=== PATIENT | female | born 1990 | race Caucasian/White ===

== ENCOUNTER → 2020-09-06 12:30 | Outpatient (CLI) | payer MEDICAID, SELFPAY ==
--- NOTE | 2020-09-06 12:51 | RAD_ITS ---
STUDY: X-RAY - RIGHT KNEE REASON FOR EXAM: Female, 30 years old. RIGHT KNEE PAIN AND SWELLING X SEVERAL DAYS -- FELL IN MAY TWICE ON HER KNEE, FELT A POP 4 DAYS AGO TECHNIQUE: 4 view(s) of the knee. COMPARISON: None. FINDINGS: Normal visualized distal femur. Normal visualized proximal tibia and fibula. Normal proximal tibiofibular articulation. Normal medial femorotibial compartment. Normal lateral femorotibial compartment. Normal patellofemoral articulation. The soft tissue structures are unremarkable. RAD/Knee 4 or More Views IMPRESSION: Normal x-ray examination of the knee. Electronically Signed: Rigo Ayoub MD at 19:43 EDT , Service support ,
== END ==
PROVIDERS: PCP Family Medicine; Visit Provider Chiropractor
DX: M25.561 Pain in right knee (principal)
CPT/HCPCS: 73564

== ENCOUNTER → 2020-12-06 11:18 | Outpatient (CLI) | payer MEDICAID, SELFPAY ==
--- NOTE | 2020-12-06 11:27 | RAD_ITS ---
STUDY: X-RAY - LUMBAR SPINE REASON FOR EXAM: Female, 30 years old. CHRONIC KNEE PAIN. PT THINKS ITS COMING FROM BACK TECHNIQUE: 4 view(s) of the lumbar spine were obtained. COMPARISON: None FINDINGS: Normal lumbar lordosis. There is no substantial scoliosis. There is a normal alignment of the vertebrae. Normal vertebral bodies and endplates. Normal disc space heights. The soft tissue structures are unremarkable. RAD/L/S Spine Min 4 Views IMPRESSION: Normal x-ray examination of the lumbar spine. Electronically Signed: Cyril España MD at 12:09 EST Tel , Service support ,
== END ==
PROVIDERS: PCP Family Medicine; Referring Provider Chiropractor; Visit Provider Chiropractor
DX: S33.5XXA Sprain of ligaments of lumbar spine, initial encounter (principal)
CPT/HCPCS: 72110

== ENCOUNTER → 2021-03-09 13:00 | Outpatient (CLI) | payer MEDICAID, SELFPAY ==
--- NOTE | 2021-03-09 14:34 | NEURO ---
NCS and/or EMG Patient Report Ordering Doctor: Elvira Gold NP DATE OF SERVICE: 03/09/21 Indication: Intermittent bilateral hand pain, numbness and poor dexterity. Symptoms are worse on the right side. Nocturnal wrist splints have reduced, but not corrected the issue. Evaluate for median neuropathy at the wrist. Findings: Nerve conduction studies were performed in the right and left upper extremities. The right median motor study recording the abductor pollicis brevis showed a normal amplitude, normal distal latency and normal conduction velocity. The right ulnar motor study recording the abductor digiti minimi showed a normal amplitude, normal distal latency and normal conduction velocity. No conduction block or focal slowing was present across the elbow. Right median-ulnar lumbrical / interosseous motor latencies showed a normal median latency compared to the ulnar. The right median sensory response recording digit two showed a normal amplitude, latency and conduction velocity. The right ulnar sensory response recording digit five showed a normal amplitude, latency and conduction velocity. The right radial sensory response recording over the extensor snuff box showed a normal amplitude, latency and conduction velocity. The left median motor study recording the abductor pollicis brevis showed a normal amplitude, normal distal latency and normal conduction velocity. The left ulnar motor study recording the abductor digiti minimi showed a normal amplitude, normal distal latency and normal conduction velocity. No conduction block or focal slowing was present across the elbow. Left median-ulnar lumbrical / interosseous motor latencies showed a normal median latency compared to the ulnar. The left median sensory response recording digit two showed a normal amplitude, latency and conduction velocity. The left ulnar sensory response recording digit five showed a normal amplitude, latency and conduction velocity. The left radial sensory response recording over the extensor snuff box showed a normal amplitude, latency and conduction velocity. Needle EMG of the right upper extremity and cervical paraspinal muscles was performed. No denervation was seen in any muscle. All motor unit morphology, activation and recruitment patterns were normal. Needle EMG of the left upper extremity was omitted due to the normal findings on the more symptomatic side. Impression: This is a normal study. There is no electrophysiologic evidence of median neuropathy across the wrist on either side. In addition, there is no electrophysiologic evidence of cervical radiculopathy, brachial plexopathy or other entrapment neuropathy in the right upper extremity. Please note: electrodiagnostic testing is appropriately 95% sensitive in detecting median neuropathy across the wrist when internal comparison studies are done, as was performed in this case. However, 5% of patients will have a false negative study. Presumably, in these patients, intermittent compression results in pain and paresthesias from ischemia, but without any fixed demyelination or axonal loss that can be demonstrated on electrodiagnostic studies. Thus, clinical correlation is required in the interpretation of this negative study. Humphrey Faith D.O.
== END ==
PROVIDERS: PCP Nurse Practitioner Primary Care; Referring Provider Nurse Practitioner Primary Care; Visit Provider Nurse Practitioner Primary Care
DX: M25.531 Pain in right wrist (principal); M25.532 Pain in left wrist; R20.0 Anesthesia of skin; R20.2 Paresthesia of skin
CPT/HCPCS: 95886; 95913

== ENCOUNTER 2022-01-14 09:09 | Outpatient (CLI) | payer MEDICAID, SELFPAY ==
[2022-01-18 18:00] LABS: HPV APTIMA, High Risk Negative (Negative)
== END 2022-01-14 23:59 | disposition home or self-care (01) ==
LOC: LABSPEC 01-15 09:10
PROVIDERS: PCP Nurse Practitioner Primary Care; Visit Provider Obstetrics & Gynecology
DX: Z12.4 Encounter for screening for malignant neoplasm of cervix (principal)
CPT/HCPCS: 87624; 88175; G0145

== ENCOUNTER 2022-02-11 09:20 | Outpatient (CLI) | payer MEDICAID, SELFPAY ==
[2022-02-11 12:37] LABS: Vitamin B12 622 pg/mL (211-911); Vitamin D,25 Hydroxy 27.4 ng/mL
[2022-02-11 12:41] LABS: Ferritin 43 ng/mL (8-252); T4 Free Direct 1.64 ng/dL (0.76-1.46); Thyroid Stim Hormone (TSH) 0.36 uIU/mL (0.358-3.74)
== END 2022-02-11 23:59 | disposition home or self-care (01) ==
LOC: BIMLAB 09:21
PROVIDERS: PCP Nurse Practitioner Primary Care; Referring Provider Internal Medicine Endocrinology, Diabetes & Metabolism; Visit Provider Internal Medicine Endocrinology, Diabetes & Metabolism
DX: R20.2 Paresthesia of skin (principal); E61.1 Iron deficiency; E03.8 Other specified hypothyroidism; E06.3 Autoimmune thyroiditis; E55.9 Vitamin D deficiency, unspecified
CPT/HCPCS: 36415; 82306; 82607; 82728; 84439; 84443

== ENCOUNTER → 2022-04-20 | Outpatient (CLI) | payer MEDICAID, SELFPAY ==
[2022-04-20 16:33] LABS: Absolute Lymphocyte Count 2.53 X10^3/uL (0.83-4.51); Absolute Neutrophil Count 5.6 X10^3/uL (2.0-7.7); Basophil# 0.04 X10^3/uL; Basophil% 0.5 % (0-1); Eosinophil# 0.05 X10^3/uL; Eosinophils% 0.6 % (0-5); Hematocrit 41.1 % (37-47); Hemoglobin 14.6 g/dL (12.0-15.0); Lymphocyte # 2.53 X10^3/ul (0.83-4.51); Lymphocyte % 29.1 % (19-41); Mean Corp Hgb Conc 35.5 g/dL (32-36); Mean Corpuscular Hgb 31.6 pg (27.0-32.0); Mean Platelet Vol. 9.6 fl (6.2-12.0); Monocyte# 0.51 X10^3/uL; Monocyte% 5.9 % (0-10); NRBC Flagged by Analyzer 0 % (0-5); Neutrophil # 5.56 X10^3/uL (2.7-7.7); Neutrophil % 63.8 % (47-70); Platelet Count 333 K/mm3 (150-450); RBC Distribution Width CV 12.1 % (11.6-14.6); RBC Distribution Width SD 38.8 fl (35.1-43.9); Red Blood Count 4.62 M/mm3 (4.2-5.4); White Blood Count 8.7 K/mm3 (4.4-11.0)
[2022-04-20 20:49] LABS: ALB/GLOB Ratio 1.2 RATIO (0.9-2.4); AST(SGOT) 18 U/L (15-37); Alanine Aminotransfer ALT/SGPT 37 U/L (13-56); Albumin, Serum 4.1 g/dL (3.2-5.0); Alkaline Phosphatase 77 U/L (45-117); Anion Gap 10 (5-15); BUN 14 mg/dL (7-18); BUN/Creat Ratio 18.4 RATIO (10-20); Calcium,Total 9.6 mg/dL (8.5-10.1); Chloride 105 mmol/L (98-107); Cholesterol 218 mg/dL (200); Creatinine, Serum 0.76 mg/dL (0.55-1.02); EST Glomerular Filtration Rate 94 mL/min (>60); Est Glom Filt Rate - Afr Amer 114 mL/min (>60); Globulin 3.3 g/dL (2.2-4.2); Glucose 92 mg/dL (74-106); High Density Lipoprotein 53 mg/dL; Potassium 4.2 mmol/L (3.5-5.1); Protein, Total 7.4 g/dL (6.4-8.2); Sodium Level 139 mmol/L (136-145); Triglycerides 171 mg/dL; Very Low Density Lipoprotein 34 mg/dL (5-40)
== END | disposition home or self-care (01) ==
LOC: BIMLAB 16:04
PROVIDERS: PCP Internal Medicine; Referring Provider Internal Medicine; Visit Provider Internal Medicine
DX: E03.8 Other specified hypothyroidism (principal); E06.3 Autoimmune thyroiditis
CPT/HCPCS: 36415; 80053; 80061; 85025

== ENCOUNTER → 2022-06-29 | Outpatient (CLI) | payer MEDICAID, SELFPAY ==
[2022-06-29 15:19] LABS: Absolute Lymphocyte Count 2.03 X10^3/uL (0.83-4.51); Absolute Neutrophil Count 3.9 X10^3/uL (2.0-7.7); Basophil# 0.04 X10^3/uL; Basophil% 0.6 % (0-1); Eosinophil# 0.03 X10^3/uL; Eosinophils% 0.5 % (0-5); Hematocrit 40.8 % (37-47); Hemoglobin 14.2 g/dL (12.0-15.0); Lymphocyte # 2.03 X10^3/ul (0.83-4.51); Lymphocyte % 32.2 % (19-41); Mean Corp Hgb Conc 34.8 g/dL (32-36); Mean Corpuscular Hgb 31.3 pg (27.0-32.0); Mean Corpuscular Volume 89.9 fL (81-99); Mean Platelet Vol. 9.6 fl (6.2-12.0); Monocyte# 0.26 X10^3/uL; Monocyte% 4.1 % (0-10); NRBC Flagged by Analyzer 0 % (0-5); Neutrophil # 3.93 X10^3/uL (2.7-7.7); Neutrophil % 62.4 % (47-70); Platelet Count 365 K/mm3 (150-450); RBC Distribution Width CV 12.2 % (11.6-14.6); RBC Distribution Width SD 39.8 fl (35.1-43.9); Red Blood Count 4.54 M/mm3 (4.2-5.4); White Blood Count 6.3 K/mm3 (4.4-11.0)
[2022-06-29 16:01] LABS: ALB/GLOB Ratio 1.1 RATIO (0.9-2.4); AST(SGOT) 13 U/L (15-37); Alanine Aminotransfer ALT/SGPT 29 U/L (13-56); Albumin, Serum 3.9 g/dL (3.2-5.0); Alkaline Phosphatase 79 U/L (45-117); Anion Gap 3 (5-15); BUN 14 mg/dL (7-18); Chloride 109 mmol/L (98-107); Creatinine, Serum 0.93 mg/dL (0.55-1.02); EST Glomerular Filtration Rate 74 mL/min (>60); Est Glom Filt Rate - Afr Amer 90 mL/min (>60); Globulin 3.5 g/dL (2.2-4.2); Glucose 94 mg/dL (74-106); Potassium 3.8 mmol/L (3.5-5.1); Protein, Total 7.4 g/dL (6.4-8.2); Sodium Level 139 mmol/L (136-145)
== END | disposition home or self-care (01) ==
LOC: BIMLAB 14:31
PROVIDERS: PCP Internal Medicine; Visit Provider Internal Medicine
DX: R00.2 Palpitations (principal)
CPT/HCPCS: 36415; 80053; 84443; 85025

== ENCOUNTER → 2022-07-09 | Outpatient (CLI) | payer MEDICAID, SELFPAY | END | disposition home or self-care (01) | LOC: PSN 08:41 | PROVIDERS: PCP Internal Medicine; Referring Provider Internal Medicine; Visit Provider Internal Medicine | DX: R00.2 Palpitations (principal) | CPT/HCPCS: 93225; 93226 ==

== ENCOUNTER → 2022-12-09 | Outpatient (CLI) | payer MEDICAID, SELFPAY ==
[2022-12-09 12:34] LABS: Thyroid Stim Hormone (TSH) 1.63 uIU/mL (0.358-3.74)
== END | disposition home or self-care (01) ==
LOC: BIMLAB 09:40
PROVIDERS: PCP Internal Medicine; Referring Provider Internal Medicine Endocrinology, Diabetes & Metabolism; Visit Provider Internal Medicine Endocrinology, Diabetes & Metabolism
DX: E03.8 Other specified hypothyroidism (principal); E06.3 Autoimmune thyroiditis
CPT/HCPCS: 36415; 84439; 84443

== ENCOUNTER → 2022-12-17 | Outpatient (CLI) | payer MEDICAID, SELFPAY ==
[2022-12-17 12:30] LABS: Absolute Lymphocyte Count 1.84 X10^3/uL (0.83-4.51); Absolute Neutrophil Count 3.2 X10^3/uL (2.0-7.7); Basophil# 0.04 X10^3/uL; Basophil% 0.7 % (0-1); Eosinophil# 0.06 X10^3/uL; Eosinophils% 1.1 % (0-5); Hemoglobin 13.7 g/dL (12.0-15.0); Lymphocyte # 1.84 X10^3/ul (0.83-4.51); Lymphocyte % 33.6 % (19-41); Mean Corp Hgb Conc 33.4 g/dL (32-36); Mean Corpuscular Hgb 30.9 pg (27.0-32.0); Mean Corpuscular Volume 92.6 fL (81-99); Mean Platelet Vol. 10.2 fl (6.2-12.0); Monocyte# 0.32 X10^3/uL; Monocyte% 5.8 % (0-10); NRBC Flagged by Analyzer 0.4 % (0-5); Neutrophil % 58.4 % (47-70); Platelet Count 351 K/mm3 (150-450); RBC Distribution Width CV 12.2 % (11.6-14.6); RBC Distribution Width SD 41.7 fl (35.1-43.9); Red Blood Count 4.43 M/mm3 (4.2-5.4); White Blood Count 5.5 K/mm3 (4.4-11.0)
[2022-12-17 12:43] LABS: Vitamin B12 693 pg/mL (211-911); Vitamin D,25 Hydroxy 22.4 ng/mL
[2022-12-17 12:46] LABS: Cholesterol 221 mg/dL (200); Ferritin 30 ng/mL (8-252); High Density Lipoprotein 74 mg/dL; Triglycerides 61 mg/dL; Very Low Density Lipoprotein 12 mg/dL (5-40)
== END | disposition home or self-care (01) ==
LOC: BIMLAB 08:52
PROVIDERS: PCP Internal Medicine; Referring Provider Internal Medicine Endocrinology, Diabetes & Metabolism; Visit Provider Internal Medicine Endocrinology, Diabetes & Metabolism
DX: E03.8 Other specified hypothyroidism (principal); E06.3 Autoimmune thyroiditis; Z78.9 Other specified health status; R53.81 Other malaise; R53.83 Other fatigue; E55.9 Vitamin D deficiency, unspecified
CPT/HCPCS: 36415; 80061; 82306; 82607; 82728; 85025

== ENCOUNTER → 2022-12-30 | Outpatient (CLI) | payer MEDICAID, SELFPAY ==
--- NOTE | 2022-12-30 08:53 | ECHOD_ITS ---
Reason For Study: ARRYTHMIA Procedure This was a 2D Doppler, Color Flow transthoracic echocardiogram. Exam performed in department. Left Ventricle Normal LV size. Left ventricular systolic function is normal. The estimated ejection fraction is 60 %. No regional wall motion abnormalities noted. Right Ventricle Normal RV size. Normal systolic function. Atria Normal left atrium. Normal right atrium. Mitral Valve Normal mitral valve. Tricuspid Valve Normal tricuspid valve. Aortic Valve Normal aortic valve. Trisinus/trileaflet aortic valve. Pulmonic Valve Normal pulmonic valve. Great Vessels Normal aortic root. The pulmonary artery is normal size. Normal inferior vena cava. Pericardium/Pleural No pericardial effusion. MMode/2D Measurements & Calculations LVIDd: 4.5 cm IVSd: 0.98 cm Ao root diam: 2.7 cm LVIDs: 2.8 cm LVPWd: 0.96 cm FS: 36.0 % LAV(MOD-sp4): 35.0 ml LVAd ap4: 23.2 cm2 LVAd ap2: 22.7 cm2 LVLd ap4: 7.3 cm LVLd ap2: 7.1 cm EDV(MOD-sp4): 59.9 ml EDV(MOD-sp2): 57.9 ml EDV(sp4-el): 63.0 ml EDV(sp2-el): 61.2 ml LVAs ap4: 12.2 cm2 LVAs ap2: 12.9 cm2 LVLs ap4: 5.8 cm LVLs ap2: 6.0 cm ESV(MOD-sp4): 21.0 ml ESV(MOD-sp2): 22.9 ml ESV(sp4-el): 21.7 ml ESV(sp2-el): 23.7 ml EF(MOD-sp4): 64.9 % EF(MOD-sp2): 60.4 % EF(sp4-el): 65.6 % SV(MOD-sp4): 38.9 ml SV(MOD-sp2): 35.0 ml SV(sp4-el): 41.3 ml LA dimension(2D): 3.3 cm LA A4 area: 14.3 cm2 RA A4 area: 8.5 cm2 Time Measurements MV dec time: 0.11 sec Doppler Measurements & Calculations MV E max bao: 95.6 cm/sec Lat Peak E' Bao: 17.1 cm/sec Med Peak E' Bao: 12.5 cm/sec MV A max bao: 86.6 cm/sec E/E' lat: 5.6 E/E' med: 7.6 MV E/A: 1.1 MV V2 max: 98.0 cm/sec MV dec slope: 860.0 cm/sec2 Ao V2 max: 133.3 cm/sec MV max P.8 mmHg Ao max P.1 mmHg MV V2 mean: 70.1 cm/sec Ao V2 mean: 92.6 cm/sec MV mean P.2 mmHg Ao mean P.9 mmHg MV V2 VTI: 23.6 cm Ao V2 VTI: 26.4 cm AV (velocity ratio): 0.79 LV V1 max: 103.8 cm/sec PA V2 max: 109.8 cm/sec LV V1 max P.3 mmHg PA V2 mean: 75.0 cm/sec LV V1 mean P.5 mmHg LV V1 mean: 74.4 cm/sec LV V1 VTI: 20.9 cm ECHO/Echo Complete Interpretation Summary Normal LV size. Left ventricular systolic function is normal. The estimated ejection fraction is 60 %. Structurally normal valves. Ordering Physician: J Luis Solomon Referring Physician: J Lius Solomon Performed By: Estrella Borden RCS
== END | disposition home or self-care (01) ==
LOC: CVS 08:50
PROVIDERS: PCP Internal Medicine; Referring Provider Internal Medicine Cardiovascular Disease; Visit Provider Internal Medicine Cardiovascular Disease
DX: R00.0 Tachycardia, unspecified (principal)
CPT/HCPCS: 93306

== ENCOUNTER → 2023-04-05 | Outpatient (CLI) | payer MEDICAID, SELFPAY ==
[2023-04-05 15:15] LABS: Internal QC Validated? YES +Cl - CLEAR BKGD
[2023-04-05 15:17] LABS: Pregnancy, Urine Positive Negative
== END | disposition home or self-care (01) ==
LOC: LABSPEC 14:09
PROVIDERS: PCP Internal Medicine; Visit Provider Nurse Practitioner Family
DX: Z32.01 Encounter for pregnancy test, result positive (principal); N92.6 Irregular menstruation, unspecified
CPT/HCPCS: 81025

== ENCOUNTER → 2024-01-20 | Outpatient (CLI) | payer MEDICAID, SELFPAY ==
[2024-01-20 13:07] LABS: T4 Free Direct 1.17 ng/dL (0.76-1.46); Thyroid Stim Hormone (TSH) 0.32 uIU/mL (0.358-3.74)
== END | disposition home or self-care (01) ==
LOC: LAB 11:29
PROVIDERS: PCP Internal Medicine; Referring Provider Internal Medicine Endocrinology, Diabetes & Metabolism; Visit Provider Internal Medicine Endocrinology, Diabetes & Metabolism
DX: E03.8 Other specified hypothyroidism (principal); E06.3 Autoimmune thyroiditis
CPT/HCPCS: 36415; 84439; 84443

== ENCOUNTER → 2024-02-23 | Outpatient (CLI) | payer MEDICAID, SELFPAY ==
--- NOTE | 2024-02-23 16:55 | US_ITS ---
STUDY: THYROID ULTRASOUND REASON FOR EXAM: Female, 33 years old. Tender, enlarged right lobe TECHNIQUE: Ultrasound evaluation of the thyroid was performed with real-time and static tellez-scale imaging. COMPARISON: None. FINDINGS: RIGHT LOBE: The right lobe of the thyroid gland measures 4.3 cm x 1.6 x 2.1 cm. There is a heterogeneous echotexture. There are no demonstrated solid, cystic or complex lesions. LEFT LOBE: The left lobe of the thyroid gland measures 4.5 cm x 1.6 cm x 2.0 cm. There is a heterogeneous echotexture. There are no demonstrated solid, cystic or complex lesions. ISTHMUS: The isthmus measures 3 mm. The regional lymph nodes are normal. US/Thyroid IMPRESSION: Heterogeneous echotexture of both lobes of the thyroid without focal nodule. Electronically Signed: Bello Quintero MD at 11:02 EDT ,
== END | disposition home or self-care (01) ==
LOC: US 16:55
PROVIDERS: PCP Internal Medicine; Referring Provider Internal Medicine Endocrinology, Diabetes & Metabolism; Visit Provider Internal Medicine Endocrinology, Diabetes & Metabolism
DX: E04.9 Nontoxic goiter, unspecified (principal); E03.8 Other specified hypothyroidism; E06.3 Autoimmune thyroiditis
CPT/HCPCS: 76536

== ENCOUNTER → 2024-03-16 | Outpatient (CLI) | payer MEDICAID, SELFPAY ==
[2024-03-16 15:26] LABS: Absolute Lymphocyte Count 2.02 X10^3/uL (0.83-4.51); Absolute Neutrophil Count 4.3 X10^3/uL (2.0-7.7); Basophil# 0.08 X10^3/uL; Basophil% 1.1 % (0-1); Eosinophil# 0.18 X10^3/uL; Eosinophils% 2.6 % (0-5); Hematocrit 38.3 % (37-47); Hemoglobin 12.7 g/dL (12.0-15.0); Lymphocyte # 2.02 X10^3/ul (0.83-4.51); Lymphocyte % 28.7 % (19-41); Mean Corp Hgb Conc 33.2 g/dL (32-36); Mean Corpuscular Hgb 30.2 pg (27.0-32.0); Mean Platelet Vol. 9.6 fl (6.2-12.0); Monocyte% 5.7 % (0-10); NRBC Flagged by Analyzer 0 % (0-5); Platelet Count 436 K/mm3 (150-450); RBC Distribution Width SD 44.9 fl (35.1-43.9); Red Blood Count 4.21 M/mm3 (4.2-5.4)
[2024-03-16 15:57] LABS: ALB/GLOB Ratio 0.9 RATIO (0.9-2.4); AST(SGOT) 33 U/L (15-37); Alanine Aminotransfer ALT/SGPT 56 U/L (13-56); Albumin, Serum 3.6 g/dL (3.2-5.0); Alkaline Phosphatase 107 U/L (45-117); Anion Gap 6 (5-15); BUN 12 mg/dL (7-18); BUN/Creat Ratio 15.7 RATIO (10-20); Calcium,Total 9.3 mg/dL (8.5-10.1); Chloride 105 mmol/L (98-107); Creatinine, Serum 0.76 mg/dL (0.55-1.02); EST Glomerular Filtration Rate 92 mL/min (>60); Est Glom Filt Rate - Afr Amer 111 mL/min (>60); Globulin 3.8 g/dL (2.2-4.2); Glucose 105 mg/dL (74-106); Potassium 4.5 mmol/L (3.5-5.1); Protein, Total 7.4 g/dL (6.4-8.2); Sodium Level 140 mmol/L (136-145)
== END | disposition home or self-care (01) ==
LOC: BIMLAB 13:28
PROVIDERS: PCP Internal Medicine; Referring Provider Internal Medicine; Visit Provider Internal Medicine
DX: N92.0 Excessive and frequent menstruation with regular cycle (principal)
CPT/HCPCS: 36415; 80053; 85025

== ENCOUNTER 2024-04-07 15:56 | Emergency (ER) | payer MEDICAID, SELFPAY ==
[2024-04-07 15:57] VITALS: BP 140/96; PULSE 99; RESP 16; TEMP 35.6; BMI 39.6
[2024-04-07 16:00] VITALS: BP 140/90; PULSE 99; RESP 16; TEMP 35.6
--- NOTE | 2024-04-07 16:08 | ED.VIS.FEGU ---
HPI HPI - Female History of Present Illness Chief Complaint: Vag Bleeding Detail of Chief Complaint: Vaginal bleeding that started April 02 Informant: patient Pain Pain: Positive for Pelvic Pain Onset: Days Context: Sudden Onset Timing: Intermittent and Waxes and wanes Quality: Positive for Cramping Current Severity: Gone Maximum Severity: Moderate Worsened by: Movement and [place] Relieved by: Remaining Still, NSAIDS and Tylenol Bleeding Issue: Positive for Vaginal bleeding and Passing clots; Negative for Passing tissue Onset: - (Bleeding started April 02. Bleeding became significant April 05.) Context: Sudden Onset Timing: Continuous and Waxes and wanes Current Severity: Heavy Current pads/hr: 1 Maximum Severity: Heavy Associated Symptoms Associated Symptoms: Negative for Dysuria, Frequency, Urgency, Hematuria or Missed Period Last known menstrual period: Prior to Sexually: Positive for Active Control: - (Bilateral salpingo-oophorectomy) P: 3 Narrative Narrative: Patient is a 33-year-old woman. Patient had bilateral salpingo ectomy November of this year. This occurred 1 day after delivery. She presents because of vaginal bleeding that started April 02. She states initially there was spotting. Tuesday it increased slightly. she reports significant/heavy bleeding. She reports using a super plus tampon plus a pad every 1.5 hours. She does feel fatigued and tired. She denies orthostatic symptoms. She denies problems with bleeding. She states she had a similar presentation last month and was placed on medicine by her [facility] Dr. Hdz. Patient denies cardiac or respiratory symptoms. Patient denies abdominal pain or back pain. She does endorse intermittent cramping pelvic pain. 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 IBS (irritable bowel syndrome) Joint instability Malaise and fatigue Missed period Obesity Palpitations Positive urine test Post thyroiditis Right shoulder pain Sinusitis Syncope Tachycardia Tonsillectomy planned Home Medications pyridoxine (vitamin B6) 100 mg tablet 100 mg PO DAILY 12/17/21 [History Last Taken Unknown] cetirizine 10 mg capsule (Zyrtec) 10 mg PO DAILY PRN 04/20/22 [History Last Taken Unknown] lactobacillus combination no.9 4 billion cell capsule (Adult 50 Plus Probiotic) PO 04/20/22 [History Last Taken Unknown] cholecalciferol (vitamin D3) 25 mcg (1,000 unit) capsule 2,000 unit PO DAILY 12/22/22 [History Last Taken Unknown] ferrous sulfate 325 mg (65 mg iron) tablet 325 mg PO DAILY 12/22/22 [History Last Taken Unknown] fluticasone propionate 50 mcg/actuation nasal spray,suspension See Rx Instructions .Route .COMPLEX #16 mL 04/27/23 [Rx Last Taken Unknown] ascorbic acid (vitamin C) 500 mg capsule mg PO DAILY 09/21/23 [History Last Taken Unknown] magnesium 250 mg tablet 500 mg PO DAILY 09/21/23 [History Last Taken Unknown] zinc gluconate 30 mg tablet 30 mg PO DAILY 09/30/23 [History Last Taken Unknown] labetalol 100 mg tablet 100 mg PO BID PRN Tacchycardia #120 tabs 10/13/23 [Rx Last Taken Unknown] levothyroxine 100 mcg tablet 100 mcg PO DAILY #90 tabs 02/17/24 [Rx Last Taken Unknown] multivitamin 1 tab PO DAILY 03/16/24 [History Last Taken Unknown] tranexamic acid 650 mg tablet 1,300 mg (2 x 650 mg) PO TID 5 days #30 tabs 04/07/24 [Rx Last Taken Unknown] Allergy/AdvReac Type Severity Reaction Status Date / Time oxycodone Allergy Severe swelling Verified 04/07/24 15:57 Sulfa (Sulfonamide Allergy Severe swelling Verified 04/07/24 15:57 Antibiotics) meloxicam AdvReac Intermediate G.I. upset Verified 04/07/24 15:57 Family History Mother Cervical cancer Diabetes Hypertension Grandmother Rheumatoid arthritis Lung cancer Hypertension Ovarian cancer Seizures Grandfather Lung cancer Diabetes Myocardial infarction Heart disease Hypertension Seizures CVA (cerebral vascular accident) Uncle Lung cancer Seizures Father Myocardial infarction Hypertension Sister Thyroid disorder Other High cholesterol Thyroid cancer Surgical History H/O tubal ligation [place] teeth extracted Surgical History no surgical history no surgical history (Patient reports bilateral salpingectomy not ligation.) Social History Smoking Status: Never smoker alcohol intake: current alcohol intake frequency: holidays/special occasions only substance use type: does not use caffeine: Yes Type: coffee Number of servings: 1 what type of physical activity do you participate in: none seatbelt use: always do you feel safe at home: Yes additional social history: - Edward ROS ROS ED Constitutional Constitutional ED: Denies chills, fever(s) or subjective Eyes Eyes: Denies blurry vision or change in vision ENT ENT ED: Denies ear pain or rhinorrhea Cardiovascular Cardiovascular: Denies chest pain or palpitations Respiratory/Chest Respiratory/Chest: Denies dyspnea or dyspnea on exertion Gastrointestinal Gastrointestinal: Denies abdominal pain, nausea or vomiting Genitourinary Genitourinary ED: Denies dysuria or hematuria Musculoskeletal Musculoskeletal: Denies arthralgias, myalgias or neck pain Integumentary Denies rash Hematologic/Lymphatic Hematologic/Lymphatic: Denies easy bleeding or easy bruising EXAM Physical Exam Const Vital Signs: 04/07/24 15:57 04/07/24 16:00 04/07/24 16:44 Temperature 96.1 F L 96.1 F L Temperature Source Temporal Temporal Pulse Rate 99 99 Pulse Rate [Lying] 82 Pulse Rate [Sitting (for 1 minute prior to obtaining)] 87 Pulse Rate [Standing (for 1 minute prior to obtaining)] 87 Respiratory Rate 16 16 Blood Pressure 140/96 H 140/90 H Blood Pressure [Lying] 136/76 H Blood Pressure [Sitting (for 1 minute prior to obtaining)] 139/99 H Blood Pressure [Standing (for 1 minute prior to obtaining)] 131/93 H Blood Pressure Mean 110 106 Blood Pressure Mean [Lying] 96 Blood Pressure Mean [Sitting (for 1 minute prior to obtaining)] 112 Blood Pressure Mean [Standing (for 1 minute prior to obtaining)] 105 Positive well nourished and well developed Constitutional Narrative: BMI is 39.6. General Appearance ED: well developed and NAD; Negative for pallor HEENT Reports moist mucous membranes HEENT Narrative: Head is atraumatic and normocephalic. Ears are normal. Eyes PERRL and EOMs intact bilaterally General Eye ED: Negative for pale conjunctiva or scleral icterus Neck supple and no JVD Resp normal respiratory effort and clear to auscultation bilaterally Cardio regular rate, regular rhythm, S1 normal heart sound, no murmurs and no JVD GI normal to inspection, nondistended, normoactive bowel sounds, soft to palpation, non-tender, non-distended and no masses Extremity normal to inspection Neuro oriented x3 and CN's II-XII intact bilaterally Neuro Narrative: Moves all extremities. Gait was observed walking from triage to the room and is normal. Sensorium / Orientation: alert Psych mental status grossly normal Skin no rashes or lesions noted and no wounds General Skin Exam: Negative for jaundice or pallor MDM MDM MDM Narrative Medical decision making narrative: Will obtain orthostatic vital signs. CBC to assess H&H and platelet count. Pelvic exam to determine if bleeding is from uterus or vaginal. History & Record Review Additional record(s) reviewed:: Prior outpatient record ( Patient was seen on March [address] Vianey denney for 6-month follow-up. A CBC was ordered because of the amount of vaginal bleeding. This was the first episode of vaginal bleeding since delivery.) Lab Data Attestation: I reviewed the patient's lab results. Labs: Laboratory Results - last 24 hr 04/07/24 16:20 WBC 9.0 RBC 4.13 L Hgb 12.8 Hct 37.6 MCV 91.0 MCH 31.0 MCHC 34.0 RDW Std Deviation 45.5 H RDW Coeff of Amanda 13.8 Plt Count 377 MPV 9.1 Immature Gran % (Auto) 0.400 Neut % (Auto) 63.7 Lymph % (Auto) 27.8 [place] % (Auto) 6.0 Eos % (Auto) 1.3 Baso % (Auto) 0.8 Absolute Neuts (auto) 5.8 Absolute Lymphs (auto) 2.51 Nucleated RBC % 0 Management Discussion w/another healthcare provider: Loss Prevention [facility] (Case discussed with Dr. Hdz. Recommendation TXA 650 mg tablets 2 tablets 3 times a day for 5 days.) Discharge Plan Triage Chief Complaint: Vag Bleeding ED Provider: Chacho Lentz Dx/Rx/DC Orders Clinical Impression: Abnormal vaginal bleeding, Hypertension Instructions: ED Dysfunctional Uterine Bleeding Prescriptions: New tranexamic acid 650 mg tablet 1,300 mg PO TID 5 Days Qty: 30 0RF No Action pyridoxine (vitamin B6) 100 mg tablet 100 mg PO DAILY Zyrtec 10 mg capsule 10 mg PO DAILY PRN Adult 50 Plus Probiotic 4 billion cell capsule PO cholecalciferol (vitamin D3) 25 mcg (1,000 unit) capsule 2,000 unit PO DAILY ferrous sulfate 325 mg (65 mg iron) tablet 325 mg PO DAILY levothyroxine 100 mcg tablet 100 mcg PO DAILY Qty: 90 3RF magnesium 250 mg tablet 500 mg PO DAILY ascorbic acid (vitamin C) 500 mg capsule PO DAILY zinc gluconate 30 mg tablet 30 mg PO DAILY multivitamin Tablet 1 tab PO DAILY fluticasone propionate 50 mcg/actuation spray,suspension See Rx Instructions .ROUTE .COMPLEX Qty: 16 2RF Dose Instruction: INSTILL 2 SPRAYS INTRANASALLY EVERY DAY NEEDED FOR ALLERGY SYMPTOMS Rx Instructions: INSTILL 2 SPRAYS INTRANASALLY EVERY DAY NEEDED FOR ALLERGY SYMPTOMS labetalol 100 mg tablet 100 mg PO BID PRN (Reason: Tacchycardia) Qty: 120 1RF Primary Care Provider: Lelo Whitlock Referrals: Lelo Whitlock MD [Primary Care Provider] - Activity Restrictions/Additional Instructions: Follow-up with your [facility] in 1 week Take medication until gone Disposition Disposition: Home, Self Care
[2024-04-07 16:39] LABS: Absolute Lymphocyte Count 2.51 X10^3/uL (0.83-4.51); Absolute Neutrophil Count 5.8 X10^3/uL (2.0-7.7); Basophil# 0.07 X10^3/uL; Basophil% 0.8 % (0-1); Eosinophil# 0.12 X10^3/uL; Eosinophils% 1.3 % (0-5); Hematocrit 37.6 % (37-47); Hemoglobin 12.8 g/dL (12.0-15.0); Lymphocyte # 2.51 X10^3/ul (0.83-4.51); Lymphocyte % 27.8 % (19-41); Mean Platelet Vol. 9.1 fl (6.2-12.0); Monocyte# 0.54 X10^3/uL; NRBC Flagged by Analyzer 0 % (0-5); Neutrophil # 5.76 X10^3/uL (2.7-7.7); Neutrophil % 63.7 % (47-70); Platelet Count 377 K/mm3 (150-450); RBC Distribution Width CV 13.8 % (11.6-14.6); RBC Distribution Width SD 45.5 fl (35.1-43.9); Red Blood Count 4.13 M/mm3 (4.2-5.4)
[2024-04-07 16:44] VITALS: BP 131/93; BP 136/76; BP 139/99; PULSE 82; PULSE 87
[2024-04-07 18:00] VITALS: BP 125/81; PULSE 75; RESP 16; O2SAT 97
[2024-04-07 18:13] VITALS: BP 122/71; PULSE 74; RESP 16; TEMP 37.1; O2SAT 99
== END 2024-04-07 18:14 | disposition home or self-care (01) ==
PROVIDERS: Emergency Provider Emergency Medicine; PCP Internal Medicine; Visit Provider Emergency Medicine
DX: N93.9 Abnormal uterine and vaginal bleeding, unspecified (principal); Z90.722 Acquired absence of ovaries, bilateral; I10 Essential (primary) hypertension; E78.00 Pure hypercholesterolemia, unspecified; E03.9 Hypothyroidism, unspecified; Z79.899 Other long term (current) drug therapy; Z98.51 Tubal ligation status
CPT/HCPCS: 85025; 99284; A4216

== ENCOUNTER → 2024-06-13 | Outpatient (CLI) | payer MEDICAID, SELFPAY ==
[2024-06-13 17:04] LABS: Internal QC Validated? YES +Cl - CLEAR BKGD; Pregnancy, Serum, hCG Quali. NEGATIVE Negative
[2024-06-13 17:05] LABS: Absolute Lymphocyte Count 3.32 X10^3/uL (0.83-4.51); Absolute Neutrophil Count 4.8 X10^3/uL (2.0-7.7); Basophil# 0.05 X10^3/uL; Basophil% 0.6 % (0-1); Eosinophil# 0.06 X10^3/uL; Eosinophils% 0.7 % (0-5); Hematocrit 39.8 % (37-47); Lymphocyte # 3.32 X10^3/ul (0.83-4.51); Lymphocyte % 37.8 % (19-41); Mean Corp Hgb Conc 32.7 g/dL (32-36); Mean Corpuscular Hgb 29.6 pg (27.0-32.0); Mean Corpuscular Volume 90.7 fL (81-99); Mean Platelet Vol. 9.2 fl (6.2-12.0); Monocyte# 0.52 X10^3/uL; Monocyte% 5.9 % (0-10); NRBC Flagged by Analyzer 0 % (0-5); Neutrophil # 4.78 X10^3/uL (2.7-7.7); Neutrophil % 54.4 % (47-70); Platelet Count 412 K/mm3 (150-450); RBC Distribution Width CV 13.3 % (11.6-14.6); RBC Distribution Width SD 43.9 fl (35.1-43.9); Red Blood Count 4.39 M/mm3 (4.2-5.4); White Blood Count 8.8 K/mm3 (4.4-11.0)
[2024-06-13 17:11] LABS: Anion Gap 5 (5-15); BUN 13 mg/dL (7-18); BUN/Creat Ratio 15.8 RATIO (10-20); Calcium,Total 8.9 mg/dL (8.5-10.1); Chloride 107 mmol/L (98-107); Creatinine, Serum 0.82 mg/dL (0.55-1.02); EST Glomerular Filtration Rate 84 mL/min (>60); Est Glom Filt Rate - Afr Amer 102 mL/min (>60); Glucose 88 mg/dL (74-106); Potassium 4.1 mmol/L (3.5-5.1); Sodium Level 138 mmol/L (136-145)
== END | disposition home or self-care (01) ==
LOC: LAB 16:04
PROVIDERS: PCP Internal Medicine; Referring Provider Physician Assistant Medical; Visit Provider Physician Assistant Medical
DX: R55 Syncope and collapse (principal)
CPT/HCPCS: 36415; 80048; 84703; 85025

== ENCOUNTER → 2024-06-19 | Outpatient (CLI) | payer MEDICAID, SELFPAY ==
[2024-06-19 10:44] LABS: Absolute Lymphocyte Count 1.82 X10^3/uL (0.83-4.51); Absolute Neutrophil Count 5.1 X10^3/uL (2.0-7.7); Basophil# 0.06 X10^3/uL; Basophil% 0.8 % (0-1); Eosinophils% 1.3 % (0-5); Hematocrit 39.2 % (37-47); Hemoglobin 13.2 g/dL (12.0-15.0); Lymphocyte # 1.82 X10^3/ul (0.83-4.51); Lymphocyte % 24.4 % (19-41); Mean Corp Hgb Conc 33.7 g/dL (32-36); Mean Corpuscular Hgb 29.9 pg (27.0-32.0); Mean Corpuscular Volume 88.7 fL (81-99); Mean Platelet Vol. 9.3 fl (6.2-12.0); Monocyte# 0.37 X10^3/uL; NRBC Flagged by Analyzer 0 % (0-5); Neutrophil # 5.09 X10^3/uL (2.7-7.7); Neutrophil % 68.2 % (47-70); Platelet Count 357 K/mm3 (150-450); RBC Distribution Width CV 13.3 % (11.6-14.6); RBC Distribution Width SD 43.4 fl (35.1-43.9); Red Blood Count 4.42 M/mm3 (4.2-5.4); White Blood Count 7.5 K/mm3 (4.4-11.0)
[2024-06-19 10:59] LABS: Internal QC Validated? YES +Cl - CLEAR BKGD; Pregnancy, Serum, hCG Quali. NEGATIVE Negative
[2024-06-19 11:05] LABS: Anion Gap 6 (5-15); BUN 10 mg/dL (7-18); Calcium,Total 9.2 mg/dL (8.5-10.1); Chloride 107 mmol/L (98-107); Creatinine, Serum 0.91 mg/dL (0.55-1.02); EST Glomerular Filtration Rate 75 mL/min (>60); Est Glom Filt Rate - Afr Amer 91 mL/min (>60); Glucose 104 mg/dL (74-106); Potassium 3.8 mmol/L (3.5-5.1); Sodium Level 138 mmol/L (136-145)
--- NOTE | 2024-06-19 16:37 | PCM.TILTTABL ---
Staff Staff: Marianela Naylor and Divine Smith Summary Pre Test Resting HR: 98 Pre Test Resting BP: 143/103 Minimum Test HR: 88 Maximum Test HR: 133 Minimum Test BP: 124/83 Maximum Test BP: 166/144 Reason for Test Termination: Reached Maximum Test Time Physician Tilt Table Report Patient's Physicians Primary Care Physician: Lelo Whitlock Indications/Diagnosis: Palpitations and tachycardia Procedure Comments: Patient was brought to the noninvasive lab in the postabsorptive nonsedated state. Informed consent was obtained. Initial heart rate and blood pressure were obtained. Initial heart rate was noted to be 98 bpm with a blood pressure 143/103 mmHg. The patient was then put in the 70 degree head upright tilt position. EKG had demonstrated sinus rhythm. The patient maintained sinus rhythm with a heart rate of 98 bpm. The peak heart rate was 105 bpm. Patient remained hypertensive throughout the test. Patient remained talkative and without symptoms. The patient was then put back in the recumbent position and given sublingual nitroglycerin as per protocol and then put back in the head upright tilt position at 70 degrees. Heart rate went up from 109 bpm to 133 bpm and blood pressure remained hypotensive. On termination of the test the patient was put back in the rate client in recumbent position. No further symptoms were noted. Summary: Negative head upright tilt table. Resting hypertension present
[2024-06-19 16:42] VITALS: BP 124/83; BP 143/103; BP 166/144
== END | disposition home or self-care (01) ==
LOC: CVS 10:05
PROVIDERS: PCP Internal Medicine; Referring Provider Physician Assistant Medical; Visit Provider Physician Assistant Medical
DX: R00.2 Palpitations (principal); R55 Syncope and collapse; R00.0 Tachycardia, unspecified
CPT/HCPCS: 36415; 80048; 84703; 85025; 93660; J7040; A4216

== ENCOUNTER 2024-10-12 11:53 | Emergency (ER) | payer MEDICAID, SELFPAY ==
[2024-10-12 11:54] VITALS: BP 165/103; PULSE 101; RESP 16; TEMP 36.6; O2SAT 99; BMI 42.7
[2024-10-12 11:57] VITALS: BP 165/103; PULSE 101; RESP 17; TEMP 36.6; O2SAT 98
--- NOTE | 2024-10-12 12:15 | EKG12_ITS ---
Test Reason : SOB Blood Pressure : */* mmHG Vent. Rate : 92 BPM Atrial Rate : 92 BPM P-R Int : 186 ms QRS Dur : 88 ms QT Int : 370 ms P-R-T Axes : 0 7 4 degrees QTcB Int : 457 ms Normal sinus rhythm Normal ECG Confirmed by DORIS BLOCK, CATRACHO ([id number]), editor dictionary SURESH FABIAN ([id number]) on 10/16/2024 7:56:06 AM Referred By: ANIBAL/KIMBERLY Confirmed By: CATRACHO GEORGE MD
--- NOTE | 2024-10-12 12:16 | EX.ED.DYSGE1 ---
HPI <VITO Hernandez - Last Filed: 10/12/24 14:06> History of Present Illness Chief Complaint: Shortness of Breath Narrative Narrative: Patient presenting today due to pain across her chest that she has had since last night. Her symptoms are worse with exertion and worse with deep breaths. She reports that she had an endometrial ablation under general anesthesia about 3 weeks ago. She also reports that she has had nasal congestion over the last several days and her daughter recently had pneumonia, however she has not been coughing. She did go to urgent care and they encouraged her to come into the emergency department to rule out PE. She denies any history of blood clots. She has a PMH of Sree's and IBS. 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 Tonsillectomy planned Post thyroiditis High cholesterol Headache Carpal tunnel syndrome Back problem Asthma Allergies Home Medications ?Medication ?Instructions ?Recorded ?Last Taken ?Type pyridoxine (vitamin B6) 100 mg 100 mg PO DAILY 12/17/21 Unknown History tablet cetirizine 10 mg capsule (Zyrtec) 10 mg PO DAILY PRN 04/20/22 Unknown History lactobacillus combination no.9 4 PO 04/20/22 Unknown History billion cell capsule (Adult 50 Plus Probiotic) cholecalciferol (vitamin D3) 25 2,000 unit PO DAILY 12/22/22 Unknown History mcg (1,000 unit) capsule ferrous sulfate 325 mg (65 mg 325 mg PO DAILY 12/22/22 Unknown History iron) tablet fluticasone propionate 50 See Rx Instructions .Route 04/27/23 Unknown Rx mcg/actuation nasal .COMPLEX #16 mL spray,suspension magnesium 250 mg tablet 500 mg PO DAILY 09/21/23 Unknown History zinc gluconate 30 mg tablet 30 mg PO DAILY 09/30/23 Unknown History levothyroxine 100 mcg tablet 100 mcg PO DAILY #90 tabs 02/17/24 Unknown Rx multivitamin 1 tab PO DAILY 03/16/24 Unknown History tranexamic acid 650 mg tablet 1,300 mg (2 x 650 mg) PO TID 5 04/07/24 Unknown Rx days #30 tabs ascorbic acid (vitamin C) 500 mg 500 mg PO DAILY 04/13/24 Unknown History capsule cyclobenzaprine 10 mg tablet 10 mg PO HS PRN muscle spasm #30 09/14/24 Unknown Rx tabs propanolol PO 09/14/24 Unknown History Allergy/AdvReac Type Severity Reaction Status Date / Time oxycodone Allergy Severe swelling Verified 10/12/24 11:57 Sulfa (Sulfonamide Allergy Severe swelling Verified 10/12/24 11:57 Antibiotics) meloxicam AdvReac Intermediate G.I. upset Verified 10/12/24 11:57 Family History Mother Cervical cancer Diabetes Hypertension Grandmother Rheumatoid arthritis Lung cancer Hypertension Ovarian cancer Seizures Grandfather Lung cancer Diabetes Myocardial infarction Heart disease Hypertension Seizures CVA (cerebral vascular accident) Uncle Lung cancer Seizures Father Myocardial infarction Hypertension Sister Thyroid disorder Other High cholesterol Thyroid cancer Surgical History H/O tubal ligation Abbot teeth extracted Social History Smoking Status: Never smoker alcohol intake: current alcohol intake frequency: holidays/special occasions only substance use type: does not use caffeine: Yes Type: coffee Number of servings: 1 what type of physical activity do you participate in: none seatbelt use: always do you feel safe at home: Yes additional social history: - Edward ROS <VITO Hernandez - Last Filed: 10/12/24 14:06> ROS ED Constitutional Constitutional ED: Denies chills or fever(s) Cardiovascular Cardiovascular: Reports chest pain; Denies palpitations Respiratory/Chest Respiratory/Chest: Denies cough or dyspnea Gastrointestinal Gastrointestinal: Denies abdominal pain, nausea or vomiting Musculoskeletal Musculoskeletal: Denies arthralgias or myalgias Integumentary Denies rash Neurologic Neurologic: Denies weakness EXAM <VITO Hernandez - Last Filed: 10/12/24 14:06> Physical Exam Const Vital Signs: 10/12/24 11:54 10/12/24 11:57 10/12/24 12:57 Temperature 97.8 F 97.8 F 97 F L Temperature Source Temporal Temporal Oral Pulse Rate 101 H 101 H 97 Respiratory Rate 16 17 15 Respiratory Effort Respiratory Depth Respiratory Pattern Blood Pressure 165/103 H 165/103 H 150/97 H Blood Pressure Mean 123 123 114 Pulse Ox 99 98 97 Oxygen Delivery Method Room Air Room Air Room Air 10/12/24 13:13 Temperature Temperature Source Pulse Rate Respiratory Rate Respiratory Effort Normal Short of Breath Respiratory Depth Normal Respiratory Pattern Normal Blood Pressure Blood Pressure Mean Pulse Ox Oxygen Delivery Method Positive well nourished, well developed and no apparent distress General Appearance ED: well developed HEENT Reports normocephalic and head/scalp atraumatic Mouth ED: Yes moist mucous membranes normal Eyes PERRL and EOMs intact bilaterally Neck full ROM and supple Chest Wall inspection of chest normal Resp normal respiratory effort and clear to auscultation bilaterally Cardio regular rate and regular rhythm Back/Spine normal ROM and normal to inspection Extremity normal to inspection and full ROM Neuro oriented x3, CN's II-XII intact bilaterally, moves all extremities, no focal motor deficits and no sensory deficits noted Sensorium / Orientation: awake and alert Psych mental status grossly normal and thought process normal Skin no rashes or lesions noted and no wounds <Dr. Jostin Covarrubias DO - Last Filed: 10/12/24 15:52> Physical Exam Const Vital Signs: 10/12/24 11:54 10/12/24 11:57 10/12/24 12:57 Temperature 97.8 F 97.8 F 97 F L Temperature Source Temporal Temporal Oral Pulse Rate 101 H 101 H 97 Respiratory Rate 16 17 15 Respiratory Effort Respiratory Depth Respiratory Pattern Blood Pressure 165/103 H 165/103 H 150/97 H Blood Pressure Mean 123 123 114 Pulse Ox 99 98 97 Oxygen Delivery Method Room Air Room Air Room Air 10/12/24 13:13 Temperature Temperature Source Pulse Rate Respiratory Rate Respiratory Effort Normal Short of Breath Respiratory Depth Normal Respiratory Pattern Normal Blood Pressure Blood Pressure Mean Pulse Ox Oxygen Delivery Method MDM <VITO Hernandez - Last Filed: 10/12/24 14:06> [facility] Narrative Medical decision making narrative: Patient presenting today with pain across her chest that is worse with deep breaths and with exertion that she has had since last night. She is nontoxic-appearing. Her oxygen saturation is 98% on room air, she is slightly tachycardic at 101 bpm and given her recent surgery, D-dimer will be obtained to rule out PE, cardiac workup will be obtained. Her CBC, BMP, troponin, and D-dimer are all unremarkable. Chest x-ray negative for infiltrate or other cardiopulmonary abnormality. Her examination is consistent with pleurisy which she has had in the past. I recommended that she follow-up with her PCP. She will be discharged home in stable condition. Lab Data Attestation: I reviewed the patient's lab results. Labs: Laboratory Results - last 24 hr 10/12/24 12:40 WBC 8.4 RBC 4.34 Hgb 13.3 Hct 39.5 MCV 91.0 MCH 30.6 MCHC 33.7 RDW Std Deviation 46.6 H RDW Coeff of Amanda 13.9 Plt Count 356 MPV 9.2 Immature Gran % (Auto) 0.700 Neut % (Auto) 64.9 Lymph % (Auto) 25.7 [place] % (Auto) 7.1 Eos % (Auto) 0.8 Baso % (Auto) 0.8 Absolute Neuts (auto) 5.5 Absolute Lymphs (auto) 2.16 Nucleated RBC % 0 D-Dimer Quant (PE/DVT) 0.31 Sodium 139 Potassium 3.8 Chloride 107 Carbon Dioxide 27.0 Anion Gap 4 L BUN 7 Creatinine 0.69 Estim Creat Clear Calc 146.43 Est GFR (MDRD) Af Amer 125 Est GFR (MDRD) Non-Af 103 BUN/Creatinine Ratio 10.1 Glucose 91 Calcium 8.6 Troponin I High Sens < 3 L Radiography X-Ray: Read by ED Physician Diagnostic Testing: Clinical Impression(s) from Imaging Studies Chest X-Ray 10/12/24 12:40 IMPRESSION: No radiographic evidence of acute cardiopulmonary disease. Electronically Signed: Elza Medina MD at 13:07 EST , EKG Initial EKG: Comments: 92 bpm, normal sinus rhythm, no ST elevation, reviewed and interpreted by attending ED physician <Dr. Jostin Covarrubias, DO - Last Filed: 10/12/24 15:52> MDM MDM Narrative Medical decision making narrative: Patient presenting today with pain across her chest that is worse with deep breaths and with exertion that she has had since last night. She is nontoxic-appearing. Her oxygen saturation is 98% on room air, she is slightly tachycardic at 101 bpm and given her recent surgery, D-dimer will be obtained to rule out PE, cardiac workup will be obtained. Her CBC, BMP, troponin, and D-dimer are all unremarkable. Chest x-ray negative for infiltrate or other cardiopulmonary abnormality. Her examination is consistent with pleurisy which she has had in the past. I recommended that she follow-up with her PCP. She will be discharged home in stable condition. Supervisory Physician Note Patient was seen and examined with the Advanced Practice Provider. Nursing notes and vital signs have been reviewed. Pertinent old records have been reviewed. I agree with the essential elements of the MAIDA's history, physical exam, assessment, and plan. The differential diagnosis and management options were discussed with the MAIDA. I participated in determining and agree with the management, procedures, final impression and disposition as documented. See changes noted by me. Please see addendum or separate note for any additional details. 34-year-old female with past medical history of pleurisy, HTN presents for evaluation of chest pain. Patient states since last night she has been having chest tightness/pain across her chest. Worse with exertion and deep inspiration. Describes it as sharp. Had surgery 3 weeks ago. Endorses URI symptoms. Denies bilateral lower extremity swelling or pain. Denies history of DVT or PE. Gen: A&O x3, NAD Head: Normocephalic, atraumatic Eyes: No sclera icterus, conjunctiva clear ENT: Moist mucous membranes Neck: Trachea midline, No JVD CV: RRR, no murmurs, no peripheral edema Resp: Lungs CTA BL, no w/r/c GI: Abd soft, non-distended, non-tender, no r/r/g Musc: Full ROM, no deformity Skin: Warm, dry Neuro: Alert, oriented, grossly intact, sensation intact Psych: Cooperative, appropriate mood and affect Differential diagnosis includes but is not limited to pleurisy, viral illness, pneumonia. Suspect less likely PE or ACS but is on the differential. Respiratory/cardiac workup ordered. CBC without leukocytosis or anemia. BMP unremarkable. Troponin unremarkable. D-dimer unremarkable. EKG and chest x-ray reviewed and unremarkable. Patient symptoms are likely secondary to pleurisy versus viral illness. Follow-up with PCP. Patient stable to discharge home. Tylenol Motrin as needed for pain. ECG was interpreted by me and contributed to patient care in the ED. It showed normal sinus rhythm without any acute ischemic changes. Heart rate 74. Plain images were interpreted by the radiologist and me, and contributed to patient care in the ED. chest x-ray not pneumonia, effusion, cardiomegaly, pneumothorax Impression: 1. Pleurisy 2. Viral illness Lab Data Labs: Laboratory Results - last 24 hr 10/12/24 12:40 WBC 8.4 RBC 4.34 Hgb 13.3 Hct 39.5 MCV 91.0 MCH 30.6 MCHC 33.7 RDW Std Deviation 46.6 H RDW Coeff of Amanda 13.9 Plt Count 356 MPV 9.2 Immature Gran % (Auto) 0.700 Neut % (Auto) 64.9 Lymph % (Auto) 25.7 [place] % (Auto) 7.1 Eos % (Auto) 0.8 Baso % (Auto) 0.8 Absolute Neuts (auto) 5.5 Absolute Lymphs (auto) 2.16 Nucleated RBC % 0 D-Dimer Quant (PE/DVT) 0.31 Sodium 139 Potassium 3.8 Chloride 107 Carbon Dioxide 27.0 Anion Gap 4 L BUN 7 Creatinine 0.69 Estim Creat Clear Calc 146.43 Est GFR (MDRD) Af Amer 125 Est GFR (MDRD) Non-Af 103 BUN/Creatinine Ratio 10.1 Glucose 91 Calcium 8.6 Troponin I High Sens < 3 L Radiography Diagnostic Testing: Clinical Impression(s) from Imaging Studies Chest X-Ray 10/12/24 12:40 IMPRESSION: No radiographic evidence of acute cardiopulmonary disease. Electronically Signed: Elza Medina MD at 13:07 EST , Discharge Plan Triage Chief Complaint: Shortness of Breath ED Midlevel Provider: Daiana Anthony ED Provider: Jostin Covarrubias Dx/Rx/DC Orders Clinical Impression: Pleurisy Instructions: ED Pleurisy Prescriptions: No Action pyridoxine (vitamin B6) 100 mg tablet 100 mg PO DAILY Zyrtec 10 mg capsule 10 mg PO DAILY PRN Adult 50 Plus Probiotic 4 billion cell capsule PO cholecalciferol (vitamin D3) 25 mcg (1,000 unit) capsule 2,000 unit PO DAILY ferrous sulfate 325 mg (65 mg iron) tablet 325 mg PO DAILY levothyroxine 100 mcg tablet 100 mcg PO DAILY Qty: 90 3RF magnesium 250 mg tablet 500 mg PO DAILY ascorbic acid (vitamin C) 500 mg capsule 500 mg PO DAILY zinc gluconate 30 mg tablet 30 mg PO DAILY multivitamin Tablet 1 tab PO DAILY propanolol PO Rx Instructions: pt reports taking 25mg po daily PRN cyclobenzaprine 10 mg tablet 10 mg PO HS PRN (Reason: muscle spasm) Qty: 30 2RF tranexamic acid 650 mg tablet 1,300 mg PO TID 5 Days Qty: 30 0RF fluticasone propionate 50 mcg/actuation spray,suspension See Rx Instructions .ROUTE .COMPLEX Qty: 16 2RF Dose Instruction: INSTILL 2 SPRAYS INTRANASALLY EVERY DAY NEEDED FOR ALLERGY SYMPTOMS Rx Instructions: INSTILL 2 SPRAYS INTRANASALLY EVERY DAY NEEDED FOR ALLERGY SYMPTOMS Primary Care Provider: Lelo Whitlock Referrals: Lelo Whitlock MD [Primary Care Provider] - 1 Week Activity Restrictions/Additional Instructions: Follow-up with your PCP and return for any other concerns or worsening symptoms. Print Language: Italian Disposition Disposition: Home, Self Care Discharge Date/Time: 10/12/24 13:41
--- NOTE | 2024-10-12 12:40 | RAD_ITS ---
INDICATION: chest pain EXAMINATION/TECHNIQUE: X-RAY - XR Chest 2 Views COMPARISON: December 22, 2011 FINDINGS: LINES/DEVICES: None. LUNGS: No consolidation, edema or effusion. No pneumothorax. MEDIASTINUM AND CARDIOVASCULAR STRUCTURES: Cardiac silhouette not enlarged. Central airways and mediastinal contour are unremarkable. BONES AND SOFT TISSUES: Unremarkable. RAD/Chest PA and Lateral IMPRESSION: No radiographic evidence of acute cardiopulmonary disease. Electronically Signed: Elza Medina MD at 13:07 EST ,
[2024-10-12 12:53] LABS: Absolute Lymphocyte Count 2.16 X10^3/uL (0.83-4.51); Absolute Neutrophil Count 5.5 X10^3/uL (2.0-7.7); Basophil# 0.07 X10^3/uL; Basophil% 0.8 % (0-1); Eosinophil# 0.07 X10^3/uL; Eosinophils% 0.8 % (0-5); Hematocrit 39.5 % (37-47); Hemoglobin 13.3 g/dL (12.0-15.0); Lymphocyte # 2.16 X10^3/ul (0.83-4.51); Lymphocyte % 25.7 % (19-41); Mean Corp Hgb Conc 33.7 g/dL (32-36); Mean Corpuscular Hgb 30.6 pg (27.0-32.0); Mean Platelet Vol. 9.2 fl (6.2-12.0); Monocyte% 7.1 % (0-10); NRBC Flagged by Analyzer 0 % (0-5); Neutrophil # 5.46 X10^3/uL (2.7-7.7); Neutrophil % 64.9 % (47-70); Platelet Count 356 K/mm3 (150-450); RBC Distribution Width CV 13.9 % (11.6-14.6); RBC Distribution Width SD 46.6 fl (35.1-43.9); Red Blood Count 4.34 M/mm3 (4.2-5.4); White Blood Count 8.4 K/mm3 (4.4-11.0)
[2024-10-12 12:57] VITALS: BP 150/97; PULSE 97; RESP 15; TEMP 36.1; O2SAT 97
[2024-10-12 13:07] LABS: Anion Gap 4 (5-15); BUN 7 mg/dL (7-18); BUN/Creat Ratio 10.1 RATIO (10-20); Calcium,Total 8.6 mg/dL (8.5-10.1); Chloride 107 mmol/L (98-107); Creatinine, Serum 0.69 mg/dL (0.55-1.02); EST Glomerular Filtration Rate 103 mL/min (>60); Est Glom Filt Rate - Afr Amer 125 mL/min (>60); Estimated Creatinine Clearance 146.43 ml/min; Glucose 91 mg/dL (74-106); Potassium 3.8 mmol/L (3.5-5.1); Sodium Level 139 mmol/L (136-145); Troponin-I HS < 3 pg/mL (3.0-54.0)
[2024-10-12 13:22] LABS: D-Dimer Quantitative (DVT/PE) 0.31 FEU/ug/m (0.27-0.49)
== END 2024-10-12 13:41 | disposition home or self-care (01) ==
PROVIDERS: Physician Assistant; Emergency Provider Surgery; PCP Internal Medicine; Visit Provider Surgery
DX: R09.1 Pleurisy (principal); B34.9 Viral infection, unspecified; I10 Essential (primary) hypertension; K58.9 Irritable bowel syndrome, unspecified; R07.9 Chest pain, unspecified; E78.00 Pure hypercholesterolemia, unspecified; E06.3 Autoimmune thyroiditis; J45.909 Unspecified asthma, uncomplicated; E03.9 Hypothyroidism, unspecified
CPT/HCPCS: 71046; 80048; 84484; 85025; 85379; 93005; 99283; A4216

== ENCOUNTER 2025-02-07 01:25 | Emergency (ER) | payer MEDICAID, SELFPAY ==
[2025-02-07 01:25] VITALS: BP 184/119; PULSE 110; RESP 19; TEMP 36.9; O2SAT 98; BMI 43.2
[2025-02-07] MEDS: Albuterol 2.5 MG/3 ML VIAL.NEB. INHALATION (02:40)
[2025-02-07 02:42] VITALS: PULSE 114; RESP 18
--- NOTE | 2025-02-07 02:42 | EDS_ITS ---
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 2 week s of cough as well as right neck pain presenting with worsening right neck pain and headache. Patient has been seen at urgent care as well as with her primary care doctor and is currently on steroids, amoxicillin (for dental infection which is improving), tizanidine, Flonase and was prescribed Robitussin with codeine yesterday. She was told if her symptoms worsen she should come back to the emergency room. She states that she feels that her pain, cough and headache has been worsening. She states she feels that the Robitussin with codeine is actually making her cough worse. She denies any fevers. Continues to have postnasal drip and a dry cough. Denies any difficulty breathing. States pain is worse when she tries to move her right shoulder or move her neck. States the pain goes from the right back of her skull down to her mid back and over to her shoulder. No other acute complaints at this time. 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 Tonsillectomy planned Post thyroiditis High cholesterol Headache Carpal tunnel syndrome Back problem Asthma Allergies Home Medications ?Medication ?Instructions ?Recorded ?Last Taken ?Type pyridoxine (vitamin B6) 100 mg 100 mg PO DAILY 2 Unknown History tablet cetirizine 10 mg capsule (Zyrtec) 10 mg PO DAILY PRN 0 04/20/22 Unknown History lactobacillus combination no.9 4 PO 04/20/22 Unknown H istory billion cell capsule (Adult 50 Plus Probiotic) cholecalciferol (vitamin D3) 25 2,000 unit PO DAILY Unknown History mcg (1,000 unit) capsule ferrous sulfate 325 mg (65 mg 325 mg PO DAILY 12/22/22 Unknown History iron) tablet magnesium 250 mg tablet 500 mg PO DAILY 09/21/23 Unk nown History zinc gluconate 30 mg tablet 30 mg PO DAILY 09/30/23 Un known History levothyroxine 100 mcg tablet 100 mcg PO DAILY #90 tabs 02/17/24 Unknown Rx multivitamin 1 tab PO DAILY 03/16/24 Unkn own History tranexamic acid 650 mg tablet 1,300 mg (2 x 650 mg) PO TID 5 04/07/24 Unknown Rx days #30 tabs ascorbic acid (vitamin C) 500 mg 500 mg PO DAILY 04/13 Unknown History capsule propanolol PO 09/14/24 Unknown History amoxicillin 875 mg tablet 875 mg PO Q12H 02/06/25 Unkn own History benzonatate 100 mg capsule mg PO 02/06/25 Unknown Hist ory codeine 10 mg-guaifenesin 100 mg/5 10 ml PO Q4-6H PRN cough #473 mL 02/06/25 Unknown Rx mL oral liquid fluticasone propionate 50 See Rx Instructions .Route 0 02/06/25 Unknown Rx mcg/actuation nasal .COMPLEX #16 mL spray,suspension prednisone 10 mg tablet 10 mg PO 02/06/25 Unknown Hi story tizanidine 2 mg capsule 2 mg PO 3XD 02/06/25 Unknown History albuterol sulfate 90 mcg/actuation 1 - 2 puff inhalati on Q4H PRN PRN 02/07/25 Unknown Rx aerosol inhaler (Ventolin HFA) coughing #1 inh diazepam 5 mg tablet (Valium) 5 mg PO TID PRN muscle s pasm 3 02/07/25 Unknown Rx days #10 tabs Allergy/AdvReac Type Severity Reaction Status Date / Time oxycodone Allergy Severe swelling Verified 02/07/25 01:26 Sulfa (Sulfonamide Allergy Severe swelling Verified 02/07/25 01:26 Antibiotics) meloxicam AdvReac Intermediate G.I. upset Verified 02/07/25 01:26 Family History Mother Cervical cancer Diabetes Hypertension Grandmother Rheumatoid arthritis Lung cancer Hypertension Ovarian cancer Seizures Grandfather Lung cancer Diabetes Myocardial infarction Heart disease Hypertension Seizures CVA (cerebral vascular accident) Uncle Lung cancer Seizures Father Myocardial infarction Hypertension Sister Thyroid disorder Other High cholesterol Thyroid cancer Surgical History H/O tubal ligation [place] teeth extracted Social History Smoking Status: Never smoker alcohol intake: current alcohol intake frequency: holidays/special occasions only substance use type: does not use caffeine: Yes Type: coffee Number of servings: 1 what type of physical activity do you participate in: none seatbelt use: always do you feel safe at home: Yes additional social history: - Edward ROS ROS ED Constitutional Constitutional ED: Denies chills or fever(s) Eyes Eyes: Denies change in vision ENT ENT ED: Reports rhinorrhea and other Details: Postnasal drip, ear pressure. Right upper dental pain?improving ; Denies sore throat Cardiovascular Cardiovascular: Denies chest pain Respiratory/Chest Respiratory/Chest: Reports cough; Denies dyspnea or sputum Gastrointestinal Gastrointestinal: Denies abdominal pain, nausea or vomiting Musculoskeletal Musculoskeletal: Reports back pain, myalgias and neck pain; Denies arthralgias Integumentary Denies rash Neurologic Neurologic: Reports headache(s); Denies paresthesias or weakness Psychiatric Psychiatric: Reports anxiety Hematologic/Lymphatic Hematologic/Lymphatic: Denies easy bleeding or easy bruising EXAM Physical Exam Const Vital Signs: 02/07/25 01:25 02/07/25 01:25 02/07/25 02:42 Temperature 98.4 F Temperature Source Oral Pulse Rate 110 H 114 H Respiratory Rate 19 H 18 Respiratory Effort Normal Non-Labored Respiratory Pattern Normal Blood Pressure 184/119 H Blood Pressure Mean 140 Pulse Ox 98 Oxygen Delivery Method Room Air 02/07/25 03:26 Temperature Temperature Source Pulse Rate 109 H Respiratory Rate 16 Respiratory Effort Respiratory Pattern Blood Pressure 159/88 H Blood Pressure Mean 111 Pulse Ox 97 Oxygen Delivery Method Room Air Positive well nourished and well developed General Appearance ED: well developed and NAD HEENT Reports TM's clear and moist mucous membranes HEENT Narrative: Normal nares. Normal oropharynx Tympanic Membrane ED: Yes TM's clear Neck supple Neck Narrative: Decreased range of motion. Pain with palpation and spasm of the right paraspinal muscles/trapezius muscle. General: tenderness Chest Wall inspection of chest normal and palpation of chest normal Resp normal respiratory effort Resp Narrative: Intermittent harsh bronchial cough. Auscultation: Negative for rales, rhonchi, wheezes or diminished lung sounds Cardio regular rate, regular rhythm and no murmurs GI normal to inspection, nondistended, normoactive bowel sounds and non-tender Back/Spine Back/Spine Narrative: Right trapezius muscle spasm. Patient is holding her right shoulder elevated. Thoracic Spine / Upper Back: paraspinal muscle tenderness right; Negative for thoracic spinal tenderness Extremity normal to inspection General Extremety ED: Negative for edema or tenderness General Extremity: Negative for edema Neuro oriented x3 Sensorium / Orientation: alert Motor Exam: Negative for general weakness Psych mental status grossly normal Mood & Affect: anxious and tearful Skin no rashes or lesions noted and no wounds MDM MDM MDM Narrative Medical decision making narrative: Patient evaluated for worsening right-sided neck and shoulder pain in the setting of cough for the 2 weeks. She is coming in with worsening pain and headache now. Does have a history of migraines. Exam highly consistent with trapezius muscle spasm and likely associated headache. She is worried she might have possibly torn a muscle in her shoulder and I do not appreciate any hematoma or fluid collection. She does have a bronchial cough. She is not hypoxic and does not have any abnormal breath sound so I have elicitation for pneumonia. No increased work of breathing. Patient is given albuterol treatment for her cough with improvement. Suspect there is a component of cough variant reactive airway at this time. She is given IV Reglan, fluids, Toradol and oral Valium for her symptoms with significant improvement. States she is feeling much better and is not resting comfortably. Range of motion of her neck has improved. Will suspicion for meningitis as it is lateral and she is afebrile. Also pain going on for 2 weeks. I do not appreciate a abscess and she denies any difficulty swallowing or upper airway complaints. Patient be discharged home with a prescription for Valium. Counseled to continue taking ibuprofen for pain (600 mg every 6 hours). Given return precautions. Is also given a prescription for an albuterol inhaler to help with her coughing fits. Counseled to not take tizanidine with the Valium. Discharged home in stable improved condition. Given return precautions. Discharge Plan Triage Chief Complaint: Other, Pain/Inj ED Provider: Rosalba Li Dx/Rx/DC Orders Clinical Impression: Spasm of right trapezius muscle, Bronchitis, Migraine Instructions: ED Back Spasm, No Trauma, ED Bronchitis, No Antibiotic (Adult), ED Neck Spasm, No Trauma Prescriptions: New diazepam [Valium] 5 mg tablet 5 mg PO TID PRN (Reason: muscle spasm) 3 Days Qty: 10 0RF albuterol sulfate [Ventolin HFA] 90 mcg/actuation HFA aerosol inhaler 1 - 2 puff inhalation Q4H PRN PRN (Reason: coughing) Qty: 1 0RF No Action pyridoxine (vitamin B6) 100 mg tablet 100 mg PO DAILY Zyrtec 10 mg capsule 10 mg PO DAILY PRN Adult 50 Plus Probiotic 4 billion cell capsule PO cholecalciferol (vitamin D3) 25 mcg (1,000 unit) capsule 2,000 unit PO DAILY ferrous sulfate 325 mg (65 mg iron) tablet 325 mg PO DAILY levothyroxine 100 mcg tablet 100 mcg PO DAILY Qty: 90 3RF magnesium 250 mg tablet 500 mg PO DAILY ascorbic acid (vitamin C) 500 mg capsule 500 mg PO DAILY zinc gluconate 30 mg tablet 30 mg PO DAILY multivitamin Tablet 1 tab PO DAILY propanolol PO Rx Instructions: pt reports taking 25mg po daily PRN amoxicillin 875 mg tablet 875 mg PO Q12H benzonatate 100 mg capsule PO Patient Comments: [NO ORIGINAL SIG] tizanidine 2 mg capsule 2 mg PO 3XD prednisone 10 mg tablet 10 mg PO Patient Comments: TAKE 4 TABLETS BY MOUTH ONCE DAILY FOR 3 DAYS, THEN 2 TABLETS ONCE DAILY FOR 3 DAYS, THEN 1 TABLET ONCE DAILY FOR 3 DAYS. TAKE WITH FOOD fluticasone propionate 50 mcg/actuation spray,suspension See Rx Instructions .ROUTE .COMPLEX Qty: 16 2RF Dose Instruction: INSTILL 2 SPRAYS INTRANASALLY EVERY DAY NEEDED FOR ALLERGY SYMPTOMS Rx Instructions: INSTILL 2 SPRAYS INTRANASALLY EVERY DAY NEEDED FOR ALLERGY SYMPTOMS codeine-guaifenesin 10-100 mg/5 mL liquid 10 ml PO Q4-6H PRN (Reason: cough) Qty: 473 1RF tranexamic acid 650 mg tablet 1,300 mg PO TID 5 Days Qty: 30 0RF Primary Care Provider: Lelo Whitlock Referrals: Lelo Whitlock MD [Primary Care Provider] - Activity Restrictions/Additional Instructions: Please do not take the muscle relaxer prescribed today (Valium) with tizanidine or the cough medicine with codeine as this can increase sedation. I recommend taking 600 mg ibuprofen every 6 hours as well for pain. Make sure drink plenty of fluids. Use the inhaler up to every 4 hours and can be especially helpful if you have coughing attacks. Print Language: [place]ill[place] Disposition Disposition: Home, Self Care
[2025-02-07] MEDS: 0.9% Normal Saline (1000mL) 1,000 ML 1000 ML IV (02:44)
[2025-02-07] MEDS: Metoclopramide 10 MG/2 ML Vial IV (02:44)
[2025-02-07] MEDS: diazePAM 5 MG Tablet PO (02:44)
[2025-02-07] MEDS: Ketorolac 15 MG/ML Vial IV (02:44)
[2025-02-07 03:26] VITALS: BP 159/88; PULSE 109; RESP 16; O2SAT 97
[2025-02-07 04:00] VITALS: BP 150/89; PULSE 92; RESP 16; TEMP 36.2; O2SAT 99
== END 2025-02-07 04:17 | disposition home or self-care (01) ==
PROVIDERS: Emergency Provider Emergency Medicine; PCP Internal Medicine; Visit Provider Emergency Medicine
DX: M62.838 Other muscle spasm (principal); G43.909 Migraine, unspecified, not intractable, without status migrainosus; Z79.1 Long term (current) use of non-steroidal anti-inflammatories (NSAID); I10 Essential (primary) hypertension; E78.00 Pure hypercholesterolemia, unspecified; J40 Bronchitis, not specified as acute or chronic; Z98.51 Tubal ligation status; Q79.60 Ehlers-Danlos syndrome, unspecified; K04.7 Periapical abscess without sinus
CPT/HCPCS: 94640; 99283; A4216

== ENCOUNTER → 2025-02-15 | Outpatient (CLI) | payer MEDICAID, SELFPAY ==
--- NOTE | 2025-02-15 11:59 | RAD_ITS ---
EXAM: XR Thoracic Spine, 2 Views CLINICAL INDICATION: PAIN TECHNIQUE: Frontal and lateral views of the thoracic spine. COMPARISON: No relevant prior studies available. FINDINGS: VERTEBRAE: Unremarkable. No acute fracture. Normal alignment. DISC SPACES: No acute findings. No significant narrowing. SOFT TISSUES: Unremarkable. RAD/Thoracic Spine 2 Views IMPRESSION: No acute fracture. Reading [facility]
--- NOTE | 2025-02-15 11:59 | RAD_ITS ---
EXAM: XR Cervical Spine, 2 or 3 Views CLINICAL INDICATION: PAIN TECHNIQUE: Frontal and lateral views of the cervical spine. COMPARISON: No relevant prior studies available. FINDINGS: VERTEBRAE: Unremarkable. No definite fracture. Normal alignment. DISC SPACES: No acute findings. No significant narrowing. SOFT TISSUES: Unremarkable. RAD/Cerv Spine 2 or 3 Views IMPRESSION: No acute fracture. Reading [facility]
== END | disposition home or self-care (01) ==
LOC: RAD 11:57
PROVIDERS: PCP Internal Medicine; Referring Provider Physician Assistant; Visit Provider Physician Assistant
DX: M62.830 Muscle spasm of back (principal)
CPT/HCPCS: 72040; 72070